=== PATIENT | male | born 1995 | race Caucasian/White ===

== ENCOUNTER 2019-02-10 17:08 | Emergency (ER) | payer OTHER ==
[~2019-02-10] VITALS: Ht 180.3 cm; Wt 106.1 kg
[2019-02-10 17:24] VITALS: BP 137/90; Ht 180.3 cm; Wt 106.1 kg
[2019-02-12 05:16] LABS: RAPID PLASMA REAGIN Non Reactive (Non Reactive)
== END 2019-02-10 19:13 | disposition home or self-care (01) ==
LOC: ED 17:08
PROVIDERS: Emergency Medicine
DX: N34.2 Other urethritis (principal); J45.909 Unspecified asthma, uncomplicated; Z91.048 Other nonmedicinal substance allergy status; Z90.89 Acquired absence of other organs
CPT/HCPCS: 36415; 87491; 87591; J0696